=== PATIENT | female | born 1950 | race Caucasian/White ===

== ENCOUNTER 2016-06-24 09:44 | Emergency (ER) | payer SELFPAY ==
[~2016-06-24] VITALS: Ht 167.6 cm; Wt 76.6 kg
[2016-06-24 11:01] LABS: EOSINOPHIL (%) 3.3 % (0-5); EOSINOPHIL COUNT 0.2 K/uL (0-0.3); HEMATOCRIT 35.3 % (36.0-46.0); IMMATURE GRANULOCYTE (%) 0.2 % (0.0-0.7); INSTRUMENT ABS NEUTROPHIL CT 2.5 K/uL; LYMPHOCYTE COUNT 1.7 K/uL (1.0-2.8); MCH 23.5 PG (29.0-34.0); MCHC 31.4 G/DL (30.0-36.0); MCV 74.8 FL (83-99); MEAN PLAT.VOLUME 12.3 uM^3 (9.5-12.4); MONOCYTE (%) 7.9 % (3-12); MONOCYTE COUNT 0.4 K/uL (0-0.8); NEUTROPHIL (%) 52.2 % (45-76); NEUTROPHIL COUNT 2.5 K/uL (1.8-6.4); PLATELET COUNT 212 K/uL (156-360); RBC DIS.WIDTH-CV 13.6 % (11.8-14.6); RBC DIS.WIDTH-SD 36.3 % (39-53); RED BLOOD COUNT 4.72 M/uL (3.80-5.20); WHITE BLOOD COUNT 4.8 K/uL (4.1-10.2)
[2016-06-24 11:04] LABS: CARBON DIOXIDE (BICARBONATE) 29.9 MEQ/L (20-31)
[2016-06-24 11:06] LABS: CHLORIDE 101 mEq/L (99-109); POTASSIUM 4.2 mEq/L (3.7-5.4); SODIUM 137 mEq/L (136-147)
[2016-06-24 11:09] LABS: ADD MIUA? YES; BILIRUBIN NEGATIVE; BLOOD NEGATIVE; COLOR YELLOW ((YELLOW)); GLUCOSE (STRIP) >=500; KETONES NEGATIVE; LEUKOCYTES MODERATE; NITRITE NEGATIVE; PROTEIN (STRIP) 30; UROBILINOGEN 0.2 MG/DL (0.2-1.0)
[2016-06-24 11:09] LABS: ANION GAP 13 MEQ/L (2-14); GLUCOSE 412 mg/dL (70-99)
[2016-06-24 11:12] LABS: GFR ESTIMATE (CALCULATED) > 59 mL/min/
[2016-06-24 11:13] LABS: UREA NITROGEN (BUN) 14 mg/dL (9-23)
[2016-06-24 11:15] LABS: BACTERIA RARE /HPF; EPITHELIAL CELLS RARE /HPF; MUCUS TRACE /LPF; RED BLOOD CELLS 0-5 /HPF (0-5)
[2016-06-24 12:28] LABS: POINT-OF-CARE METER ID UU13113778
[2016-06-24] MEDS ORDERED: METFORMIN HCL1000 MG PO (12:44)
[2016-06-24] MEDS ORDERED: CIPRO500 MG PO (12:44)
[2016-06-24 12:50] LABS: POINT-OF-CARE METER ID UU13113702
[2016-06-24 13:54] VITALS: BP 138/81
[2016-06-25] MEDS ORDERED: GLYBURIDE5 MG PO (21:30)
== END 2016-06-24 13:55 | disposition home or self-care (01) ==
LOC: EME 09:44
PROVIDERS: Emergency Medicine
DX: E11.65 Type 2 diabetes mellitus with hyperglycemia (principal); N39.0 Urinary tract infection, site not specified; T38.3X6A Underdosing of insulin and oral hypoglycemic [antidiabetic] drugs, initial encounter; Z91.128 Patient's intentional underdosing of medication regimen for other reason; I10 Essential (primary) hypertension; F17.200 Nicotine dependence, unspecified, uncomplicated
CPT/HCPCS: 80048; 81003; 82010; 82803; 82948; 85025; 99281; 99285; J7030

== ENCOUNTER 2016-06-25 18:23 | Emergency (ER) | payer SELFPAY ==
[~2016-06-25] VITALS: Ht 167.6 cm; Wt 75.1 kg
[~2016-06-25 18:23] MED LIST: CIPRO500 MG PO; METFORMIN HCL1000 MG PO
[2016-06-25 19:58] LABS: CHLORIDE 100 mEq/L (99-109); POTASSIUM 4.3 mEq/L (3.7-5.4); SODIUM 135 mEq/L (136-147)
[2016-06-25 20:02] LABS: ANION GAP 15 MEQ/L (2-14); TOTAL BILIRUBIN 0.2 mg/dL (0.0-1.0)
[2016-06-25 20:03] LABS: ALKALINE PHOSPHATASE 125 IU/L (3-129)
[2016-06-25 20:04] LABS: GFR ESTIMATE (CALCULATED) 48 mL/min/
[2016-06-25 20:05] LABS: UREA NITROGEN (BUN) 12 mg/dL (9-23)
[2016-06-25 20:07] LABS: GLUCOSE 508 mg/dL (70-99)
[2016-06-25 20:20] LABS: MCH 23.4 PG (29.0-34.0); MCHC 31.4 G/DL (30.0-36.0); MCV 74.7 FL (83-99); MEAN PLAT.VOLUME 12.9 uM^3 (9.5-12.4); PLATELET COUNT 230 K/uL (156-360); RBC DIS.WIDTH-CV 13.7 % (11.8-14.6); RBC DIS.WIDTH-SD 36.6 % (39-53); RED BLOOD COUNT 4.82 M/uL (3.80-5.20); WHITE BLOOD COUNT 6.2 K/uL (4.1-10.2)
[2016-06-25 20:29] LABS: ADD MIUA? YES; BILIRUBIN NEGATIVE; BLOOD NEGATIVE; COLOR STRAW ((YELLOW)); GLUCOSE (STRIP) >=500; KETONES NEGATIVE; LEUKOCYTES SMALL; NITRITE NEGATIVE; PROTEIN (STRIP) NEGATIVE; SPECIFIC GRAVITY 1.027 (1.000-1.030); UROBILINOGEN 0.2 MG/DL (0.2-1.0)
[2016-06-25 20:47] LABS: BACTERIA NONE SEEN /HPF; EPITHELIAL CELLS RARE /HPF; MUCUS TRACE /LPF; RED BLOOD CELLS 0-5 /HPF (0-5); UCUL ADDED? NO
[2016-06-25 21:03] LABS: Estimated Average Glucose 390 mg/dL (70-123)
[2016-06-25 21:04] LABS: HEMOGLOBIN A1c (GLYCOHEMOGLOB) 15.2 % HGB (Below 5.7)
[2016-06-25] MEDS ORDERED: GLYBURIDE5 MG PO (21:30)
[2016-06-25 21:40] LABS: POINT-OF-CARE METER ID UU13113800
[2016-06-25 22:30] VITALS: BP 150/87
[2016-06-30 11:23] LABS: POINT-OF-CARE METER ID UU13113800
== END 2016-06-25 22:34 | disposition home or self-care (01) ==
LOC: EME 18:23
PROVIDERS: Physician Assistant
DX: E11.65 Type 2 diabetes mellitus with hyperglycemia (principal); T38.3X6A Underdosing of insulin and oral hypoglycemic [antidiabetic] drugs, initial encounter; Z91.128 Patient's intentional underdosing of medication regimen for other reason; E78.5 Hyperlipidemia, unspecified; I10 Essential (primary) hypertension; Z88.6 Allergy status to analgesic agent; F17.200 Nicotine dependence, unspecified, uncomplicated
CPT/HCPCS: 80053; 81003; 82010; 82948; 83036; 85027; 99281; 99284; J2405; J7030